=== PATIENT | female | born 1975 | race Caucasian/White ===

== ENCOUNTER 2024-06-25 15:39 | Outpatient (CLI) | payer OTHER, SELFPAY ==
[2024-06-25 16:53] LABS: Beta HCG Quantitative < 2.39 mIU/ML
[2024-07-01 11:53] LABS: FSH 116.8 mIU/mL
[2024-07-08 17:58] LABS: Estrogen 61 pg/mL
== END 2024-06-25 15:40 | disposition home or self-care (01) ==
LOC: ANHLAB 15:42
PROVIDERS: Visit Provider Nurse Practitioner Family
DX: N92.6 Irregular menstruation, unspecified (principal); N91.2 Amenorrhea, unspecified
CPT/HCPCS: 36415; 82672; 83001; 84702

== ENCOUNTER 2024-10-19 14:35 | Outpatient (CLI) | payer OTHER, SELFPAY ==
[2024-10-20 09:04] LABS: FSH 97.9 mIU/mL
--- OUTSIDE RECORDS SUMMARY | 2024-10-22 14:08 | XMS_ITS | Encounter Summary ---
Author Organization [facility] Address [address] [place] [address]. [place], [place] [address] [place] [address] Care Team Providers Care X Ray Physician Name Role Phone Sheri Fair MD Primary Care Provider [phone] Encounter Details Date Type Department Care Team (Late st Contact Info) Description 04/18/2024 MyChart Message Enc [facility] Family & Internal Medicine [address] [address] [place] [address] 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 [place] [address] documented as of this encounter Visit Diagnoses Not on filedocumented in this encounter Care Teams X Ray Physician Relationship Specialty [place] [address] [place] [address] PCP - General FAMILY PRACTICE 08/07/22 documented as of this encounter
--- OUTSIDE RECORDS SUMMARY | 2024-10-22 14:08 | XMS_ITS | Encounter Summary ---
Author Organization [facility] Address [address] [place] [address]. [place], [place] [address] [place] [address] Care Team Providers Care Operations Boardman Name Role Phone Sheri Fair MD Primary Care Provider [phone] Encounter Details Date Type Department Care Team (Late Contact Info) Description 01/25/2023 [facility] [address] [place] [address] Samy, [facility] Provider Patient Amendment Request Social History Tobacco Use Types Packs/Day Years Used Date Smoking Tobacco: Never Smokeless Tobacco: Never Alcohol Use Standard Drinks/Week Comments Yes 0 (1 standard drink = 0.6 oz pur e alcohol) socially PHQ-2 Answer Date Recorded Patient Health Questionnaire-2 Score 0 01/16/2023 Comments Unknown Sex and Gender Information Value Date Recorded Sex Assigned at Not on file 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 No / Unsure 01/16/2023 4:29 PM CDT documented as of this encounter Plan of Treatment Upcoming Encounters Date Type Department Care Team (Late st Contact Info) Description 01/20/2025 4:20 PM CDT Office Visit [facility] Family & Internal Medicine [address] [address] Sheri Fair MD [address] [place] [address]. [address] [place] [address] documented as of this encounter Visit Diagnoses Not on filedocumented in this encounter Care Teams Operations Boardman Relationship Specialty [place] [address] [place] [address] PCP - General FAMILY PRACTICE 08/07/22 documented as of this encounter
--- OUTSIDE RECORDS SUMMARY | 2024-10-22 14:08 | XMS_ITS | Encounter Summary ---
Author Organization [facility] Address [address] [place] [address]. [place], [place] [address] [place] [address] Care Team Providers Care Consulting Sme Name Role Phone Sheri Fair MD Primary Care Provider [phone] Reason for Visit * Reason Onset Date Comments Question 09/29/2024 Encounter Details Date Type Department Care Team (Late st Contact Info) Description 09/29/2024 [employer] Message Enc [facility] Family & Internal Medicine [address] [address] [place] Fair [place] [id number] [place] [address]. 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 ANIC'S ASSISTANT * Vipin iGl - 10/06/2024 9:16 AM CST Pt calling needing to have a TB test done okay for order to be put in? Would like a call back Please advise. ANIC'S ASSISTANT documented in this encounter Plan of Treatment Upcoming Encounters Date Type Department Care Team (Late st Contact Info) Description 01/20/2025 4:20 PM CDT Office Visit [facility] Family & Internal Medicine [facility] [address] [place] [address] [place] [address] [facility]. [address] [place] [address] documented as of this encounter Visit Diagnoses Not on filedocumented in this encounter Care Teams Consulting Sme Relationship Specialty [place] [address] [facility]. [address] [place] [address] PCP - General FAMILY PRACTICE 08/07/22 documented as of this encounter
--- OUTSIDE RECORDS SUMMARY | 2024-10-22 14:08 | XMS_ITS | Encounter Summary ---
Author Organization [facility] Address [address] [place] [address]. [place], [place] [address] [place] [address] Care Team Providers Care Production Lead Name Role Phone Sheri Fair MD Primary Care Provider [phone] Encounter Details Date Type Department Care Team (Late st Contact Info) Description 12/28/2023 Coworking[employer]t Message Enc [facility] Family & Internal Medicine [address] [address] Sheri Fair MD [address] [place] [address] [place] [address] Lipid panel Social History Tobacco Use Types Packs/Day Years Used Date Smoking Tobacco: Never Smokeless Tobacco: Never Alcohol Use Standard Drinks/Week Comments Yes 0 (1 standard drink = 0.6 oz pur e alcohol) socially PHQ-2 Answer Date Recorded Patient Health Questionnaire-2 Score 0 01/16/2023 Comments Unknown Sex and Gender Information Value Date Recorded Sex Assigned at Not on file 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 No order was placed. Patient scheduled 01/20/24 documented in this encounter Plan of Treatment Upcoming Encounters Date Type Department Care Team (Late st Contact Info) Description 01/20/2025 4:20 PM CDT Office Visit [facility] Family & Internal Medicine - [place] [address] [place] [phone] [place] [address] [facility] [address] [place] [address] documented as of this encounter Visit Diagnoses Not on filedocumented in this encounter Care Teams Production Lead Relationship Specialty [place] [address] [facility] [address] [place] [address] PCP - General FAMILY PRACTICE 08/07/22 documented as of this encounter
--- OUTSIDE RECORDS SUMMARY | 2024-10-22 14:08 | XMS_ITS | Encounter Summary ---
Author Organization [facility] Address [address] [place] [address]. [place], [place] [address] [place] [address] Care Team Providers Care Esl Instructional Assistant Name Role Phone Sheri Fair MD Primary Care Provider Encounter Details Date Type Department Care Team (Late Contact Info) Description 02/06/2023 Kaizen Platform Message Enc [facility] Family & Internal Medicine [address] [address] Samy [facility] Provider results Social History Tobacco Use Types Packs/Day Years Used Date Smoking Tobacco: Never Smokeless Tobacco: Never Alcohol Use Standard Drinks/Week Comments Yes 0 (1 standard drink = 0.6 oz pur e alcohol) socially PHQ-2 Answer Date Recorded Patient Health Questionnaire-2 Score 0 01/16/2023 Comments Unknown Sex and Gender Information Value Date Recorded Sex Assigned at Not on file Legal Sex Female 9:00 AM SCOUTS Gender Identity Not on file Sexual Orientation Not on file COVID-19 Exposure Response Date Recorded In the last 10 days, have yo u been in contact with someone who was confirmed or suspected to have Coronavirus/COVID-19? No / Unsure 01/16/2023 4:29 PM CDT documented as of this encounter Plan of Treatment Upcoming Encounters Date Type Department Care Team (Late Contact Info) Description 01/20/2025 4:20 PM CDT Office Visit [facility] Family & Internal Medicine [facility] [id number] [place] [address] Sheri Fair MD [address] [place] [address]. [address] [place] [address] documented as of this encounter Visit Diagnoses Not on filedocumented in this encounter Care Teams Esl Instructional Assistant Relationship Specialty [place] [address] [address] [place] [address] PCP - General FAMILY PRACTICE 08/07/22 documented as of this encounter
--- OUTSIDE RECORDS SUMMARY | 2024-10-22 14:08 | XMS_ITS | Clinical Summary ---
Author Organization [facility] Address [address] [place] [address]. [place] [address] [place] [address] Care Team Providers Care Radar Signal Processing Engineer Name Role Phone Sheri Fair MD Primary Care Provider [phone] Allergies No known active allergies Medications multi vitamin/mineral s (THERA-M ENHANCED) tablet Take 1 tablet by mouth daily. Active Glucosamine-Cho ndroitin 1795-5117 MG/30ML Liquid Take 1 capsule by mouth daily. 1500mg Active Methylsulfonylm ethane (MSM) 500 MG Cap Active ferrous sulfate EC 325 (65 Fe) MG tablet Take 1 tablet by mouth daily. Active magnesium oxide (MAG-OX) 400 (240 Mg) MG tablet Take 1 tablet (400 mg total) by mouth daily. Active vitamin D3, cholecalciferol , (VITAMIN D-3) 10 mcg tablet Take 1.5 tablets (15 mcg total) by mouth daily. Active Zinc Sulfate (ZINC 15 OR) Take 15 mg by mouth. Active Methylsulfonylm ethane (MSM) 1000 MG Tab Active vitamin B-12 (CYANOCOBALAMIN ) (CYANOCOBALAMIN ) 1000 mcg tablet Take 1 tablet (1,000 mcg total) by mouth daily. Active Calcium Carbonate Antacid 1000 MG Chew Tab Chew 1 tablet by mouth daily. Active Seth-3 Fatty Acids (FISH OIL) 1200 MG Cap Active azithromycin (ZITHROMAX) 250 MG tabletIndicatio ns:Bronchitis Take 2 tablets by mouth on day one then 1 daily for four days. 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 Encounters Date Type Department Care Team Description 10/06/2024 3:00 PM TV NEWS DIRECTOR Allied Health/Nurse Visit [facility] Family & Internal Medicine [address] [address] Sheri Fair MD Allied Health Visit (TB test ) 10/06/2024 Scan [employer] [facility] SR[facility] Scanned, Doc [facility] Lab (SCAN) 10/06/2024 Travel 09/29/2024 [employer] Message Enc [facility] Family & Internal [address] [address] Sheri Fair MD Physical 09/15/2024 3:20 PM TV NEWS DIRECTOR Office Visit [facility] Family & Internal [address] [address] Jeri Leigh PA URI (S/s x 3 weeks) 09/15/2024 Travel from Last 3 Months Immunizations Name Administration Dates Next Due Tdap (Adacel) 09/03/2022 Family History * Patient is adopted Medical History Relation Comments Cancer Father Breast Cancer Neg Hx Relation Status Comments Father Social History Tobacco Use Types Packs/Day Years Used Date Smoking Tobacco: Never Smokeless Tobacco: Never Tobacco Cessation:Counseling Given: No Alcohol Use Standard Drinks/Week Comments Yes 0 (1 standard drink = 0.6 oz pur e alcohol) socially PHQ-2 Answer Date Recorded Patient Health Questionnaire-2 Score 0 01/20/2024 Comments No Sex and Gender Information Value Date Recorded Sex Assigned at Not on file Legal Sex Female 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 Gender Identity Not on file Sexual Orientation Not on file Last Filed Vital Signs Vital Sign Reading Time Taken Comments Blood Pressure 127/77 09/15/2024 2:57 PM TV NEWS DIRECTOR Pulse 62 09/15/2024 2:57 PM TV NEWS DIRECTOR Temperature 36.3 ??C (97.3 ??F) 09/15/2024 2:57 PM CS T Respiratory Rate 16 09/15/2024 2:57 PM TV NEWS DIRECTOR Oxygen Saturation 97% 09/15/2024 2:57 PM TV NEWS DIRECTOR Inhaled Oxygen Concentration - - Weight 65.6 kg (144 lb 9.6 oz) 09/15/2024 2:57 P M TV NEWS DIRECTOR Height 172.7 cm (5' 8 ) 09/15/2024 2:57 PM TV NEWS DIRECTOR Body Mass Index 21.99 09/15/2024 2:57 PM TV NEWS DIRECTOR Plan of Treatment Upcoming Encounters Date Type Department Care Team (Late st Contact Info) Description 01/20/2025 4:20 PM CDT Office Visit [facility] [address] [place] [address] [place] [address] [facility]. [address] [place] [address] Health Maintenance Due Date Last Done Comments Hepatitis B Vaccines (1 of 3 - 19+ 3-dose series) 1996 Annual Physical 01/17/2024 01/16/2023 COVID-19 Vaccine (2 - 2023-2 5 season) 2024 02/13/2021 Influenza Adult (#1) 2024 PHQ-2 (Physician [place]) 01/19/2025 01/20/2024 Cervical Cancer Screening Pa p Smear (Age 30 to 64) Every 3 Years 01/16/2026 01/16/2023 Mammogram Screening 01/28/2026 01/29/2024, 11/26/2022 Colorectal Cancer Screening FIT-DNA (3 Years) 01/30/2026 01/30/2023, 01/30/2023 Cervical Cancer Screening Pa p with HPV Testing (Age 30 to 64) Every 5 Years 01/17/2028 01/16/2023 Cervical Cancer Screening wi th HPV 01/17/2028 DTaP, Tdap and Td Vaccines ( 2 - Td or Tdap) 09/03/2032 09/03/2022 Hepatitis C Completed 01/02/2023 Meningococcal B Vaccine Aged Out No l onger eligible based on patient's age to complete this topic Meningococcal Vaccine Aged Out No devaughn elisabeth eligible based on patient's age to complete this topic Pneumococcal Vaccine: Pediatrics (0 to 5 Years) and At-Risk Patients (6 to 64 Years) Aged Out No longer eligible b ased on patient's age to complete this topic RSV Immunizations Under 20 Months Aged Out No longer eligible b ased on patient's age to complete this topic Procedures Procedure Name Priority Date/Time Associated Diagnosis Comments TB INTRADERMAL TEST (BACK OFFICE) Routine 10/06/2024 3:02 PM TV NEWS DIRECTOR Screening-pulmonary TB OUTSIDE LAB (SCAN ORDER) 10/06/2024 MG SCREENING W TRENTON SYBIL DIGI Routine 01/29/2024 3:00 PM CDT Breast cancer screening COLOGUARD (EXACT SCIENCE) Routine 01/30/2023 7:05 AM CDT Colon cancer screening HUMAN PAPILLOMAVIRUS, HIGH-RISK TYPES Routine 01/16/2023 12:00 PM CDT CYTOPATH CERV/VAG THIN LAYER Routine 01/16/2023 8:12 AM CDT Cervical cancer screening HEPATITIS C ANTIBODY Routine 01/02/2023 7:35 AM CDT Encounter for hepatitis C screening test for low risk patient from Last 3 Months or Most Recently Relevant to Health Maintenance Results * TB INTRADERMAL TEST (BACK OFFICE) (10/06/2024 3:02 PM TV NEWS DIRECTOR) MM INDURATION 0mm NOT REQUIRED 10/06/2024 3:02 PM TV NEWS DIRECTOR Sheri Fair MD MICROBIOLOGY - GENERAL ORDERAB LES Final Result * OUTSIDE LAB (SCAN ORDER) (10/06/2024) 10/06/2024 [facility] Scanned SCANNING Final Resu lt * MG SCREENING W TRENTON SYBIL DIGI (01/29/2024 3:00 PM CDT) Anatomical Region Laterality Modality Breast Bilateral Mammography 01/29/2024 5:13 PM CDT Impressions 01/29/2024 5:17 PM CDT ===== IMPRESSION: ===== 1. ??Stable mammographic appearance with no new findings to suggest malignancy in either breast. Assessment: ACR BI-RADS 2 - BENIGN FINDING(S) Recommendation: 1:Routine Screening Bilateral Comments: Ordered By: SHERI FAIR Interpreted By: Elida Pederson, 01/29/2024 5:13 PM Narrative 01/29/2024 5:17 PM CDT EXAMINATION: Digital bilateral screening mammogram with 3-D tomosynthesis EXAM DATE/TIME: 01/29/2024 2:48 PM REASON FOR EXAM: ??Screening mammogram after November ? COMPARISON: 05/14/2022. 11/26/2022. Technique: Digital screening mammography of both breasts was performed in addition to 3-D Tomosynthesis technique. This study was read with the assistance of a computer-aided detection system. Tissue density: The breast tissue is heterogeneously dense, which may obscure small masses. Findings: There is no new focal asymmetry, dominant mass lesion, area of skin thickening, or cluster of suspicious appearing calcifications in either breast to suggest malignancy. Sheri Fair MD MAMMO Final Result * COLOGUARD (Zjdg.cn SCIENCE) (01/30/2023 7:05 AM CDT) COLOGUARD RESULT Negative Negative [place] [place] (CLIA #:[id number]) Comment: NEGATIVE TEST RESULT. A negative Cologuard result indicates a low likelihood that a colorectal cancer (CRC) or advanced adenoma (adenomatous polyps with more advanced pre-malignant features) ??is present. The chance that a person with a negative Cologuard test has a colorectal cancer is less than 1 in 1500 (negative predictive value >99.9%) or has an ??advanced adenoma is less than ??5.3% (negative predictive value 94.7%). These data are based on a prospective cross-sectional study of 10,000 individuals at average risk for colorectal cancer who were screened with both Cologuard and colonoscopy. (Giselle Abernathy al, N Engl J Med 2014;370(14):1286- 1297) The normal value (reference range) for this assay is negative. COLOGUARD RE-SCREENING RECOMMENDATION: Periodic colorectal cancer screening is an important part of preventive healthcare for asymptomatic individuals at average risk for colorectal cancer. ??Following a negative Cologuard result, the [place] [employer] Cancer Society and U.S. Multi-Society Task Force screening guidelines recommend a Cologuard re-screening interval of 3 years. References: [place] [employer] Society Guideline for Colorectal Cancer Screening: https://www.cancer.org/cancer/mzloe-xsjtzx-qnppqi/ztrevixqq-lfukjkqpa-tgcigse/ac s-rec ommendations.html.; Frederic DK, Shaggy JENKINS, Tam ClayK, Colorectal Cancer Screening: Recommendations for Physicians and Patients from the U.S. Multi-Society Task Force on Colorectal Cancer Screening , Am J Gastroenterology 2017; 112:2771-5820. TEST DESCRIPTION: Composite algorithmic analysis of stool DNA-biomarkers with hemoglobin immunoassay. ?? Quantitative values of individual biomarkers are not reportable and are not associated with individual biomarker result reference ranges. Cologuard is intended for colorectal cancer screening of adults of either sex, 45 years or older, who are at average-risk for colorectal cancer (CRC). Cologuard has been approved for use by the U.S. FDA. The performance of Cologuard was established in a cross sectional study of average-risk adults aged 50-84. Cologuard performance in patients ages 45 to 49 years was estimated by sub-group analysis of near-age groups. Colonoscopies performed for a positive result may find as the most clinically significant lesion: colorectal cancer [4.0%], advanced adenoma (including sessile serrated polyps greater than or equal to 1cm diameter) [20%] or non- advanced adenoma [31%]; or no colorectal neoplasia [45%]. These estimates are derived from a prospective cross-sectional screening study of 10,000 individuals at average risk for colorectal cancer who were screened with both Cologuard and colonoscopy. (Giselle Abernathy al, N Engl J Med 2014;370(14):6094-3694.) Cologuard may produce a false negative or false positive result (no colorectal cancer or precancerous polyp present at colonoscopy follow up). A negative Cologuard test result does not guarantee the absence of CRC or advanced adenoma (pre-cancer). The current Cologuard screening interval is every 3 years. ([place] [employer] Cancer Society and U.S. Multi-Society Task Force). Cologuard performance data in a 10,000 patient pivotal study using colonoscopy as the reference method can be accessed at the following location: www.Fineline.thinkingphones/results. Additional description of the Cologuard test process, warnings and precautions can be found at www.colWeVideo.Itrd.com. STOOL STOOL SPECIMEN / Unknown 01/30/2023 7:05 AM CDT 01/31/2023 2:55 PM CDT Sheri Fair MD BODY FLUIDS AND STOOLS ORDERAB LES Final Result Performing Organization Address [facility] Co de Phone Number [employer] ([facility] [address] [facility]) [address] [place] [address], [facility] (CLIA #:[id number]) [address] [place] [address] * HUMAN PAPILLOMAVIRUS, HIGH-RISK TYPES (01/16/2023 12:00 PM CDT) SPEC DESCRIPTION CERVICAL/END OCERVICAL 01/18/2023 8:36 AM CDT [facility] HPV DNA HIGH RISK NEGATIVE NEGATIVE 01/18/2023 4:34 PM CDT [facility] Comment:SEE CYTOLOGY REPORT 01/16/2023 12:0 0 PM CDT Sheri Fair MD PATHOLOGY/CYTOLOGY ORDERABLES Final Result Performing Organization Address City/[facility]/ZIP Co de Phone Number [facility] [address] [place] [address], * CYTOPATH CERV/VAG THIN LAYER [[id number]] (01/16/2023 8:12 AM CDT) THIN PREP PAP ? [facility] ?[address] ?[place] [address] ? Department of Pathology ? Pathology Report ? CERVICAL/VAGINAL PAP SMEAR REPORT Name: JACKIE COLEMAN ? Age: 704/06/1975 (Age: 47) ? Location: [facility] Sex: F ?Collected Date: 01/16/2023 Hospital #: [id number] ?Date Received: 01/18/2023 Date Reported: 01/22/2023 Provider: SHERI FAIR MD INTERPRETATION CERVICAL/ENDOCERVI LUIS FERNANDO: ? SATISFACTORY FOR EVALUATION. ENDOCERVICAL/TRANS FORMATION ZONE COMPONENT PRESENT. ? NEGATIVE FOR INTRAEPITHELIAL LESION OR MALIGNANCY. NEGATIVE FOR HIGH RISK HPV. The FDA approved Aptima HPV assay is an in vitro nucleic acid amplification test for the qualitative detection of E6/E7 viral messenger RNA (mRNA) from 14 high-risk types of human papillomavirus (HPV) in cervical specimens. ??The high-risk HPV types detected by the assay include: 16,18,31,33,35,39, 45,51,52,56,58,59, 66, and 68. Electronically Signed Out By SONNY Miller (ASCP) CLINICAL HISTORY Z12.4 SCREENING PAP TEST ThinPrep Pap Test with HR HPV testing in patient > 30 years requested. Date of Last Menstrual Period: ? UNKNOWN Menstrual Status: Post-Menopausal SPECIMEN SUBMITTED CERVICAL/ENDOCERVI LUIS FERNANDO ?Specimen Received:1 Thin Prep Vial, Image Assisted Pap (SMD) ? Please note: The Pap smear is not a diagnostic test. ??It is a screening test. ??Negative results on combined screening (Pap test and HPV-DNA) have a high negative predictive value (99.1-100 percent) for cervical cancer. ??The pap test is not effective in detecting cervical adenocarcinoma. [facility] 01/16/2023 8:12 AM CDT 01/18/2023 8:12 AM CDT Comment:CERVICAL/ENDOCERVICA L Sheri Fair MD PATHOLOGY/CYTOLOGY ORDERABLES Final Result [facility] [address] [place] [address], * HEPATITIS C AB ([facility] ONLY) (01/02/2023 7:35 AM CDT) HEPATITIS C AB NON-REACTI VE NON-REACTI VE 01/02/2023 8:25 PM CDT [facility] 01/02/2023 7:35 AM CDT Sheri Fair MD LABORATORY Final Result [facility] [address] [place] [address], [place] [phone] from Last 3 Months or Most Recently Relevant to Health Maintenance Insurance [facility] [place] [id number] [employer] Care Teams Radar Signal Processing Engineer Relationship Specialty [place] [address] [address] [place] [address] PCP - General FAMILY PRACTICE 08/07/22
== END 2024-10-19 14:36 | disposition home or self-care (01) ==
LOC: ANHLAB 14:36
PROVIDERS: Visit Provider Nurse Practitioner Obstetrics & Gynecology
DX: N92.6 Irregular menstruation, unspecified (principal)
CPT/HCPCS: 36415; 83001

== ENCOUNTER 2024-10-30 15:58 | Outpatient (CLI) | payer OTHER, SELFPAY ==
--- OUTSIDE RECORDS SUMMARY | 2024-10-30 16:00 | XMS_ITS | Encounter Summary ---
Author Organization [facility] Address [address] [place] [address]. [place], [place] [address] [place] [address] Care Team Providers Care Waste Picker Name Role Phone Sheri Fair MD Primary Care Provider [phone] Reason for Visit * Reason Onset Date Comments Question 09/29/2024 Encounter Details Date Type Department Care Team (Late st Contact Info) Description 09/29/2024 [employer] Message Enc [facility] Family & Internal Medicine [address] [address] [place] Fair [place] [id number] [place] [address]. [address] [place] [address] Physical Social History Tobacco Use [...] on file Legal Sex Female 9:00 AM CPAS Gender Identity Not on file Sexual Orientation Not on file documented as of this encounter Progress Notes * Nadine Rubalcava RN - 10/09/2024 8:41 AM CST Paperwork signed & scanned into chart. * Vipin Gil - 10/06/2024 9:16 AM CST Pt calling needing to have a TB test done okay for order to be put in? Would like a call back Please advise. documented in this encounter Plan of Treatment Upcoming Encounters Date Type Department Care Team (Late st Contact Info) Description 01/20/2025 4:20 PM CDT Office Visit [facility] Family & Internal Medicine [facility] [address] [place] [address] [place] [address] [facility] [place]. [address] [place] [address] documented as of this encounter Visit Diagnoses Not on filedocumented in this encounter Care Teams Waste Picker Relationship Specialty [place] [address] [facility] [place]. [address] [place] [address] PCP - General FAMILY PRACTICE 08/07/22 documented as of this encounter
--- OUTSIDE RECORDS SUMMARY | 2024-10-30 16:00 | XMS_ITS | Encounter Summary ---
Author Organization [facility] Address [address] [place] [address]. 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 [address] [place] [address] documented as of this encounter Visit Diagnoses Not on filedocumented in this encounter Care Teams It Manager Relationship Specialty [place] [address] [address] [place] [address] PCP - General FAMILY PRACTICE 08/07/22 documented as of this encounter
--- OUTSIDE RECORDS SUMMARY | 2024-10-30 16:00 | XMS_ITS | Encounter Summary ---
Author Organization [facility] Address [address] [place] [address]. 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 [address] [place] [address] documented as of this encounter Visit Diagnoses Not on filedocumented in this encounter Care Teams Technical Documentation Specialist Relationship Specialty [place] [address] [address] [place] [address] PCP - General FAMILY PRACTICE 08/07/22 documented as of this encounter
--- OUTSIDE RECORDS SUMMARY | 2024-10-30 16:00 | XMS_ITS | Clinical Summary ---
Author Organization [facility] Address [address] [place] [address]. [place] [address] [place] [address] Care Team Providers Care Certified Dental Assistant Name Role Phone Sheri Fair MD Primary Care Provider [phone] Allergies No known active allergies Medications multi vitamin/mineral s (THERA-M ENHANCED) tablet Take 1 tablet by mouth daily. Active Glucosamine-Cho ndroitin 7970-2354 MG/30ML Liquid Take 1 capsule by mouth [...] Chew 1 tablet by mouth daily. Active Tow-3 Fatty Acids (FISH OIL) 1200 MG Cap Active azithromycin (ZITHROMAX) 250 MG tabletIndicatio ns:Bronchitis Take 2 tablets by mouth on day one then 1 daily for four days. 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 Encounters Date Type Department Care Team Description 10/06/2024 3:00 PM FINISHING TECHNICIAN Allied Health/Nurse Visit [facility] Family & Internal Medicine [address] [address] Sheri Fair MD Allied Health Visit (TB test ) 10/06/2024 Scan Errplane HEALTH INFO SRVCS Scanned, [facility] Lab (SCAN) 10/06/2024 Travel 09/29/2024 Collplanthart Message Enc [facility] Family & Internal [address] [address] Sheri Fair MD Physical 09/15/2024 3:20 PM FINISHING TECHNICIAN Office Visit [facility] Family & Internal [address] [address] Jeri Leigh PA URI (S/s [...] on file 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 Gender Identity Not on file Sexual Orientation Not on file Last Filed Vital Signs Vital Sign Reading Time Taken Comments Blood Pressure 127/77 09/15/2024 2:57 PM FINISHING TECHNICIAN Pulse 62 09/15/2024 2:57 PM FINISHING TECHNICIAN Temperature 36.3 ??C (97.3 ??F) 09/15/2024 2:57 PM CS T Respiratory Rate 16 09/15/2024 2:57 PM FINISHING TECHNICIAN Oxygen Saturation 97% 09/15/2024 2:57 PM FINISHING TECHNICIAN Inhaled Oxygen Concentration - - Weight 65.6 kg (144 lb 9.6 oz) 09/15/2024 2:57 P M FINISHING TECHNICIAN Height 172.7 cm (5' 8 ) 09/15/2024 2:57 PM FINISHING TECHNICIAN Body Mass Index 21.99 09/15/2024 2:57 PM FINISHING TECHNICIAN Plan of Treatment Upcoming Encounters Date Type Department Care Team (Late st Contact Info) Description 01/20/2025 4:20 PM CDT Office Visit [facility] Family & Internal Medicine [facility] [address] [place] [address] [place] [address] [facility] [place] [address] Health Maintenance Due Date Last Done Comments Hepatitis B Vaccines (1 of 3 - 19+ 3-dose series) 1996 Annual Physical 01/17/2024 01/16/2023 COVID-19 Vaccine (2 - 2023-2 5 season) 2024 02/13/2021 Influenza Adult (#1) 2024 PHQ-2 (Physician [place]) 09/30/2024 01/20/2024 PHQ-2 (Physician [place]) 01/19/2025 01/20/2024 Cervical Cancer Screening Pa p [...] TEST (BACK OFFICE) Routine 10/06/2024 3:02 PM FINISHING TECHNICIAN Screening-pulmonary TB OUTSIDE LAB (SCAN ORDER) 10/06/2024 [...] INTRADERMAL TEST (BACK OFFICE) (10/06/2024 3:02 PM FINISHING TECHNICIAN) MM INDURATION 0mm NOT REQUIRED 10/06/2024 3:02 PM FINISHING TECHNICIAN Sheri Fair MD MICROBIOLOGY - GENERAL ORDERAB [...] Fair MD MAMMO Final Result * COLOGUARD (EXACT SCIENCE) (01/30/2023 7:05 AM CDT) COLOGUARD RESULT Negative Negative [employer] (CLIA #:[id number]) Comment: NEGATIVE TEST RESULT. A negative Cologuard [...] cancer. ??Following a negative Cologuard result, the [place] [employer] Society and U.S. Multi-Society Task Force screening guidelines recommend a Cologuard re-screening interval of 3 years. References: [place] [employer] Guideline for Colorectal Cancer Screening: https://www.cancer.org/cancer/vyqhr-bnbnmp-hvpdej/wtxjzbvwq-qpmrvepjo-aejovqv/ac s-rec ommendations.html.; Frederic DK, Shaggy CR, Tam ClayK, Colorectal Cancer Screening: Recommendations for Physicians and Patients from the U.S. Multi-Society Task Force on Colorectal Cancer Screening , Am J Gastroenterology 2017; 112:4245-3038. TEST DESCRIPTION: Composite algorithmic analysis of stool [...] screened with both Cologuard and colonoscopy. (Giselle Kyle, N Engl J Med 2014;370(14):6551-3588.) Cologuard may produce a false negative or false positive result (no colorectal cancer or precancerous polyp present at colonoscopy follow up). A negative Cologuard test result does not guarantee the absence of CRC or advanced adenoma (pre-cancer). The current Cologuard screening interval is every 3 years. ([place] [employer] Society and U.S. Multi-Society Task Force). Cologuard performance data in a 10,000 patient pivotal study using colonoscopy as the reference method can be accessed at the following location: www.[employer].com/results. Additional description of the Cologuard test process, warnings and precautions can be found at www.cologuard.com. STOOL STOOL SPECIMEN / Unknown 01/30/2023 7:05 AM CDT 01/31/2023 2:55 PM CDT us Sheri Fair MD BODY FLUIDS AND STOOLS ORDERAB LES Final Result Performing Organization Address [facility] Co de Phone Number [employer] ([address] LAB) [address] [place] [address], [employer] (CLIA #:[id number]) [address] [place] [address] * HUMAN PAPILLOMAVIRUS, HIGH-RISK TYPES (01/16/2023 12:00 PM CDT) SPEC DESCRIPTION CERVICAL/END OCERVICAL 01/18/2023 8:36 AM CDT [facility] HPV DNA HIGH RISK NEGATIVE NEGATIVE 01/18/2023 4:34 PM CDT [facility] Comment:SEE CYTOLOGY REPORT 01/16/2023 12:0 0 PM CDT us Sheri Fair MD PATHOLOGY/CYTOLOGY ORDERABLES Final Result Performing Organization Address [facility] Co de Phone Number [facility] [address] [place] [address], * CYTOPATH CERV/VAG THIN LAYER [[id number]] (01/16/2023 8:12 AM CDT) THIN PREP PAP ? [facility] ?[address] ?[place] [address] ? Department of Pathology ? Pathology Report ? CERVICAL/VAGINAL PAP SMEAR REPORT Name: JACKIE COLEMAN ? Age: 704/06/1975 (Age: 47) ? Location: [facility] Sex: F ?Collected Date: 01/16/2023 Hospital #: [id number] ?Date Received: 01/18/2023 Date Reported: 01/22/2023 Provider: [...] is not effective in detecting cervical adenocarcinoma. [facility] 01/16/2023 8:12 AM CDT 01/18/2023 8:12 AM CDT Comment:CERVICAL/ENDOCERVICA L Sheri Fair MD PATHOLOGY/CYTOLOGY ORDERABLES Final Result [facility] [address] [place] [address], * HEPATITIS C AB ([facility] ONLY) (01/02/2023 7:35 AM CDT) HEPATITIS C AB NON-REACTI VE NON-REACTI VE 01/02/2023 8:25 PM CDT [facility] 01/02/2023 7:35 AM CDT Sheri Fair MD LABORATORY Final Result [facility] [address] [place] [address], [place] [phone] from Last 3 Months or Most Recently Relevant to Health Maintenance Insurance [facility] [place] [id number] [employer] Care Teams Certified Dental Assistant Relationship Specialty [place] [address] [place] [address] PCP - General FAMILY PRACTICE 08/07/22
--- OUTSIDE RECORDS SUMMARY | 2024-10-30 16:00 | XMS_ITS | Encounter Summary ---
Author Organization [facility] Address [address] [place] [address]. 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 No order was placed. Patient scheduled 01/20/24 documented in this encounter Plan of Treatment Upcoming Encounters Date Type Department Care Team (Late st Contact Info) Description 01/20/2025 4:20 PM CDT Office Visit [facility] Medical Group Family & Internal Medicine - [place] [address] [place] [phone] [place] [address] [facility] [place] [address] documented as of this encounter Visit Diagnoses Not on filedocumented in this encounter Care Teams Bread And Pastry Baker Relationship Specialty [place] [address] [facility] [address] [place] [address] PCP - General FAMILY PRACTICE 08/07/22 documented as of this encounter
--- OUTSIDE RECORDS SUMMARY | 2024-10-30 16:00 | XMS_ITS | Encounter Summary ---
Author Organization [facility] Address [address] [place] [address]. [place], [place] [address] [place] [address] Care Team Providers Care Negotiations Director Name Role Phone Sheri Fair MD Primary Care Provider [phone] Encounter Details Date Type Department Care Team (Late st Contact Info) Description 04/18/2024 MyChart Message Enc [facility] Family & Internal Medicine [address] [address] [place] [address] 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 [place] [address] documented as of this encounter Visit Diagnoses Not on filedocumented in this encounter Care Teams Negotiations Director Relationship Specialty [place] [address] [place] [address] PCP - General FAMILY PRACTICE 08/07/22 documented as of this encounter
== END 2024-10-30 15:59 | disposition home or self-care (01) ==
PROVIDERS: Visit Provider Nurse Practitioner Obstetrics & Gynecology
DX: Z78.0 Asymptomatic menopausal state (principal)
CPT/HCPCS: 36415; 82670; 84443

== ENCOUNTER 2024-12-28 13:15 | Outpatient (CLI) | payer OTHER, SELFPAY ==
--- NOTE | ~2024-12-28 | US_ITS ---
EXAMINATION: US pelvic complete w TV INDICATION: Postmenopausal bleeding Comparison:Postmenopausal bleeding TECHNIQUE: Multiple transabdominal and endovaginal sonographic images of the pelvis performed. FINDINGS: The uterus measures 7 x 4.5 x 4.5 cm. Uterus is retroverted. There is a small uterine fibro id measuring 8 mm. The endometrial complex measures 5 mm. The right ovary measures 3.2 x 1.6 x 2.3 cm and the left ovary measures 2.7 x 2.1 x 0.9 cm. There is a 1.6 cm right ovarian cyst. There are small follicles in each ovary. Normal doppler signal in both o varies. There is no free fluid in the pelvis. There are no abnormal masses seen on either side. IMPRESSION: 1. Thickened endomtrial complex. The differential diagnosis includes endometrial hyperplasia, polyp a nd carcinoma. Biopsy is recommended. Reviewed, dictated and finalized at location A. IMPRESSION: 1. Thickened endomtrial complex. The differential diagnosis includes endometria l hyperplasia, polyp and carcinoma. Biopsy is recommended.
== END 2024-12-28 13:16 | disposition home or self-care (01) ==
LOC: MICIMG 13:16
PROVIDERS: PCP Nurse Practitioner Obstetrics & Gynecology; Visit Provider Nurse Practitioner Obstetrics & Gynecology
DX: N95.0 Postmenopausal bleeding (principal); R93.89 Abnormal findings on diagnostic imaging of other specified body structures
CPT/HCPCS: 76830; 76856

== ENCOUNTER 2025-02-03 00:53 | Day surgery (SDC) | payer OTHER, SELFPAY ==
[2025-01-19 17:00] VITALS: BMI 22.4
--- NOTE | 2025-01-19 17:05 | SUR.PREOP ---
Report to the Outpatient Waiting Room, entrance under the green pavilion located off [facility], at time _0930_ on date _02/03/2025_. Planned Procedure Time: _1130_.? Time changes happen often and if your time is changed the preop area will call you the afternoon before. - You and your visitor will be asked to self-screen and do not enter if you have any COVID symptoms. Please call surgeon if you need to reschedule. - A mask is optional within the hospital at this time. Patients may have clear liquids (water, carbonated beverages, clear teas, apple juice) until 3 hours (0830) prior to surgery with a maximum of 20 ounces. - No food from midnight until time of surgery and no smoking, or chewing tobacco (or any form of nicotine). No chewing gum, candy or mints. Take only the following medications with a SIP of water on the morning of surgery: _NA_ DO NOT STOP ANY OF YOUR OTHER PRESCRIPTION MEDICATIONS PRIOR TO SURGERY EXCEPT THE FOLLOWING Hold all vitamins and supplements for 3 days per anesthesiologist. Medications to discontinue per physician _NA_ Date to take last dose_NA_ Please no make-up, nail kinyarwanda, hairspray, perfume, deodorant, or body powder the day of surgery.? No jewelry (including any body piercings) or valuables the day of surgery, leave them at home.? Please take a shower or bath the night before, or the morning of, surgery with an antibacterial soap.? Wear comfortable, loose fitting clothing.? - Jewelry must be removed prior to entering the operating room.? Rings and piercings that are not removed may be cut off. - The hospital will not accept responsibility for valuables.? - Please leave all valuables, including medications, at home the day of surgery. If you are going home after surgery, a licensed cdl team truck driver must drive you home.? - NO public transportation without another adult if you receive anesthesia. - We recommend that an adult stay with you for 24 hours following discharge. - We also recommend that you do not drive, make important decision, drink alcoholic beverages, or take any drugs that were not prescribed by your health care provider for at least 24 hours after your discharge time. Follow any additional instructions given to you from your surgeon. Telephone instructions given to _Shannon_and asked if any additional questions and then verbalized understanding. Patient advised to call surgeon office or pre surgery nurse liaison [phone] if any additional questions.
[2025-02-03] VITALS (10 sets, daily range): BP systolic 61–125; BP diastolic 30–76; PULSE 41–74; RESP 16–18; TEMP 36.1; O2SAT 100
--- OUTSIDE RECORDS SUMMARY | 2025-02-03 00:56 | XMS_ITS | Encounter Summary ---
Author Organization [facility] Address [address] [place] [address] Care Team Providers Care Tumbling Instructor Name Role Phone Sheri Fair MD Primary Care Provider [phone] Encounter Details Date Type Department Care Team (Late st Contact Info) Description 04/18/2024 Intigu[employer]art Message Enc [facility] Medical Group Family & Internal Medicine [address] [address] [place] [address] 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 [place] [id number] PCP - General FAMILY PRACTICE 08/07/22 documented as of this encounter
--- OUTSIDE RECORDS SUMMARY | 2025-02-03 00:56 | XMS_ITS | Clinical Summary ---
Author Organization [facility] Address [facility] [place] [address] Care Team Providers Care Fringe Weaver Name Role Phone Sheri Fair MD Primary Care Provider [phone] Allergies No known active allergies Medications multi vitamin/mineral s (THERA-M ENHANCED) tablet Take 1 tablet by mouth daily. Active Glucosamine-Cho ndroitin 2479-8823 MG/30ML Liquid Take 1 capsule by mouth [...] Chew 1 tablet by mouth daily. Active Colbert-3 Fatty Acids (FISH OIL) 1200 MG Cap Active azithromycin (ZITHROMAX) 250 MG tabletIndicatio ns:Bronchitis Take 2 tablets by mouth on day one then 1 daily for four days. 6 tablet 4 Active Additional Information Patient not taking.Reported on 01/13/2025 Ca Phosphate-Jenny calciferol (ALIVE CALCIUM PLUS VITAMIN D3) 260-25 MG-MCG Chew Tab Acti ve Active Problems Problem Noted Date Diagnosed Date Macrocytosis 01/20/2023 Encounters Date Type Department Care Team Description 01/13/2025 10:28 AM CDT - 01/13/2025 11:59 PM CDT Hospital Encounter [facility] [address] [place] [address] Jeri Leigh, PA Discharge Disposition: Home or Self Care (Routine Discharge) 01/13/2025 10:27 AM CDT Hospital Encounter [facility] [address] [place] [address] Jeri Leigh, PA Discharge Disposition: Home or Self Care (Routine Discharge) 01/13/2025 9:20 AM CDT Office Visit [facility] [address] [phone] Jeri Leigh, PA Pain (To upper left side- x2 weeks-area to ribs and whole left side) 01/13/2025 Results Follow-Up 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 Gender Identity Not on file Sexual Orientation Not on file Last Filed Vital Signs Vital Sign Reading Time Taken Comments Blood Pressure 139/85 01/13/2025 9:18 AM CDT Pulse 69 01/13/2025 9:18 AM CDT Temperature 37 C (98.6 F) 01/13/2025 9:18 AM CDT Respiratory Rate 20 01/13/2025 9:18 AM CDT Oxygen Saturation 100% 01/13/2025 9:18 AM CDT Inhaled Oxygen Concentration - - Weight 67.1 kg (148 lb) 01/13/2025 9:18 AM CDT Height 172.7 cm (5' 8) 01/13/2025 9:18 AM CDT Body Mass Index 22.5 01/13/2025 9:18 AM CDT Plan of Treatment Health Maintenance Due Date Last Done Comments Hepatitis B Vaccines (1 of 3 - 19+ 3-dose series) 1996 Annual Physical 01/17/2024 01/16/2023 COVID-19 Vaccine (2 - 2023-2 5 season) 2024 02/13/2021 Cervical Cancer Screening Pa p Smear (Age [...] Tdap) 09/03/2032 09/03/2022 Hepatitis C Completed 01/02/2023 PHQ-2 (Physician [place]) Completed 01/13/2025 Meningococcal B Vaccine Aged Out No l onger eligible based on patient's age to complete this topic Meningococcal Vaccine Aged Out No devaughn elisabeth eligible based on patient's age to complete this topic Pneumococcal Vaccine: Pediatrics (0 to 5 Years) and At-Risk Patients (6 to 49 Years) Aged Out No longer eligible b ased on patient's age to complete this topic RSV Immunizations Under 20 Months Aged Out No longer eligible b ased on patient's age to complete this topic Procedures Procedure Name Priority Date/Time Associated Diagnosis Comments CT ABD+PEL W CON STAT 01/13/2025 11:5 3 AM CDT Left flank pain LLQ pain XR CHEST PA+LAT STAT 01/13/2025 10:51 AM CDT LUQ pain LIPASE Routine 01/13/2025 10:31 AM CDT LLQ pain COMPREHENSIVE METABOLIC PANEL Routine 01/13/2025 10:31 AM CDT LLQ pain CBC W/DIFF AUTOMATED Routine 01/13/2025 10:31 AM CDT LLQ pain URINALYSIS AUTO DIP Routine 01/13/2025 Left flank pain MG SCREENING W TRENTON SYBIL DIGI Routine [...] Recently Relevant to Health Maintenance Results * CT ABD+PEL W CON (01/13/2025 11:53 AM CDT) Anatomical Region Laterality Modality Abdomen Computed Tomogra phy 01/13/2025 12:0 5 PM CDT Impressions 01/13/2025 12:11 PM CDT IMPRESSION: No acute inflammatory changes are present within the abdomen or pelvis. No significant free fluid. There are a few small bowel loops on the left that has slightly thickened wall which can be seen with bowel enteropathies as well as enteritis. Clinical correlation recommended. 2.7 cm right ovarian follicle/cyst is present. This can be seen normally in a patient of menstrual age. Ordered By: JERI LEIGH Interpreted By: Sy Maki MD, 01/13/2025 12:05 PM Narrative 01/13/2025 12:11 PM CDT [facility] [address] [place] [address] Procedure(s): CT ABD+PEL W CON Date of service: 01/13/2025 10:47 AM Provided clinical information: 49 years, Female, left sided abdominal pain Procedure and materials: Helical imaging of the abdomen and pelvis are obtained from superior to the diaphragm to inferior to the initial tuberosities. Examination performed after intravenous contrast. 75 mL Isovue-370. A dose lowering technique was used for this procedure, which may include, but is not limited to, dose reduction technique, automated exposure control, iterative reconstruction, ALARA (As Low As Reasonably Achievable), or Image Gently techniques. Comparison studies: None. Findings: CT abdomen and pelvis: Lung Bases: No pleural effusions or consolidations. Adrenals:Normal. Spleen:No splenomegaly. Gallbladder and Biliary system:No CT evidence of cholelithiasis. No biliary ductal dilatation. Pancreas:Unremarkable. Liver:Unremarkable. Kidneys:Unremarkable. Bowel:No pericolonic inflammatory changes. Visualized appendix is unremarkable. No small bowel dilatation. There few scattered small bowel loops on the left that have slightly thickened morin. This may relate to a bowel enteropathy or enteritis. Clinical correlation. Aorta and Retroperitoneum:No enlarged lymph nodes. Aorta is not aneurysmal. Pelvic Organs:Urinary bladder is unremarkable. Uterus is relatively unremarkable. 2.7 cm right ovarian follicle/cyst. This can be seen normally in a patient of menstrual age. What appears to be left ovary is not enlarged. Bone/Musculoskeletal: No aggressive osseous lesions. Free fluid: None Procedure Note Sy Maki MD - 01/13/2025 [facility] [address] [place] [phone] Procedure(s): CT ABD+PEL W CON Date of service: 01/13/2025 10:47 AM Provided clinical information: 49 years, Female, left sided abdominalpain Procedure and materials: Helical imaging of the abdomen and pelvis areobtained from superior to the diaphragm to inferior to the initialtuberosities. Examination performed after intravenous contrast. 75 mLIsovue-370. A dose lowering technique was used for this procedure, which may include,but is not limited to, dose reduction technique, automated exposurecontrol, iterative reconstruction, ALARA (As Low As ReasonablyAchievable), or Image Gently techniques. Comparison studies: None. Findings: CT abdomen and pelvis: Lung Bases: No pleural effusions or consolidations. Adrenals:Normal. Spleen:No splenomegaly. Gallbladder and Biliary system:No CT evidence of cholelithiasis. Nobiliary ductal dilatation. Pancreas:Unremarkable. Liver:Unremarkable. Kidneys:Unremarkable. Bowel:No pericolonic inflammatory changes. Visualized appendix isunremarkable. No small bowel dilatation. There few scattered small bowelloops on the left that have slightly thickened morin. This may relate to abowel enteropathy or enteritis. Clinical correlation. Aorta and Retroperitoneum:No enlarged lymph nodes. Aorta is notaneurysmal. Pelvic Organs:Urinary bladder is unremarkable. Uterus is relativelyunremarkable. 2.7 cm right ovarian follicle/cyst. This can be seennormally in a patient of menstrual age. What appears to be left ovary is not enlarged. Bone/Musculoskeletal: No aggressive osseous lesions. Free fluid: None IMPRESSION: No acute inflammatory changes are present within the abdomen or pelvis. Nosignificant free fluid. There are a few small bowel loops on the left thathas slightly thickened wall which can be seen with bowel enteropathies aswell as enteritis. Clinical correlation recommended. 2.7 cm right ovarian follicle/cyst is present. This can be seen normallyin a patient of menstrual age. Ordered By: JERI LEIGH Interpreted By: Sy Maki MD, 01/13/2025 12:05 [address] us Jeri [address]AL CT Final Result * XR CHEST PA+LAT (01/13/2025 10:51 AM CDT) Anatomical Region Laterality Modality Chest Radiographic Susan ging 01/13/2025 10:5 1 AM CDT Impressions 01/13/2025 10:51 AM CDT IMPRESSION: Negative chest Ordered By: JERI LEIGH Interpreted By: Chidi Harvey MD, 01/13/2025 10:51 AM Narrative 01/13/2025 10:51 AM CDT [address] [place] [address] 2 VIEWS OF THE CHEST Clinical history: Left-sided pain Comparison: None 2 views of the chest demonstrate the cardiac silhouette to be normal in size and appearance. The pulmonary vessels are normally distributed. The Lungs are clear. No consolidations or effusions are seen. Procedure Note Chidi Harvey MD - 01/13/[address] [place] [address] 2 VIEWS OF THE CHEST Clinical history: Left-sided pain Comparison: None 2 views of the chest demonstrate the cardiac silhouette to be normal insize and appearance. The pulmonary vessels are normally distributed. TheLungs are clear. No consolidations or effusions are seen. IMPRESSION: Negative chest Ordered By: JERI LEIGH Interpreted By: Chidi Harvey MD, 01/13/2025 10:51 AM Jeri Leigh [facility] GENERAL IMAGING Final Result * COMPREHENSIVE METABOLIC PANEL (01/13/2025 10:31 AM CDT) GLUCOSE 95 70 - 99 MG/DL 01/13/2025 11:11 AM CDT [facility] BUN 16 7 - 18 MG/DL 01/13/2025 11:11 AM CDT [facility] CREATININE S/P/B 0.74 0.55 - 1.02 MG/DL 01/13/2025 11:11 AM CDT [facility] SODIUM S/P/B 141 136 - 145 MMOL/L 01/13/2025 11:11 AM [facility] POTASSIUM S/P/B 4.0 3.5 - 5.1 MMOL/L 01/13/2025 11:11 AM [facility] CHLORIDE S/P/B 103 100 - 108 MMOL/L 01/13/2025 11:11 AM [facility] CO2 31.5 21 - 32 MMOL/L 01/13/2025 11:11 AM [facility] CALCIUM S/P/B 9.4 8.5 - 10.1 MG/DL 01/13/2025 11:11 AM [facility] BILIRUBIN TOTAL S/P/B 0.4 0.2 - 1.2 MG/DL 01/13/2025 11:11 AM [facility] TOTAL PROTEIN S/P/B 7.7 6.4 - 8.2 G/DL 01/13/2025 11:11 AM [facility] ALBUMIN S/P/B 4.2 3.4 - 5.0 G/DL 01/13/2025 11:11 AM [facility] AST 19 15 - 37 U/L 01/13/2025 11:11 AM [facility] ALT 25 14 - 55 U/L 01/13/2025 11:11 AM [facility] ALKALINE PHOSPHATASE S/P/B 66 50 - 136 U/L 01/13/2025 11:11 AM [facility] ANION GAP 6.5 5 - 15 MMOL/L 01/13/2025 11:11 AM [facility] BUN CREATININE RATIO 21.6 6 - 26 01/13/2025 11:11 AM [facility] A/G RATIO 1.2 1.0 - 2.0 RATIO 01/13/2025 11:11 AM CDT [facility] GFR ESTIMATE >90 >90 ML/MIN/1.7 3 M2 01/13/2025 11:11 AM CDT [facility] Comment: NOTE: eGFR is not calculated for patients <18 years of age. This is an estimated GFR calculation using the new CKD EPI creatinine equation without race and so does not require a correction factor for race. This estimated GFR should not be used for calculating drug doses. 01/13/2025 10:3 1 AM CDT Jeri MARISCAL LABORATORY Final Result [facility] [address] [place] [phone], * (ABNORMAL) CBC W/DIFF AUTOMATED (01/13/2025 10:31 AM CDT) WBC 5.21 4.4 - 11.0 x10'3/uL 01/13/2025 10:52 AM CDT [facility] RBC 4.31(L) 4.50 - 5.10 x10'6/uL 01/13/2025 10:52 AM CDT [facility] HGB 14.2 12.3 - 15.3 G/DL 01/13/2025 10:52 AM CDT [facility] HCT 41.7 35.9 - 44.6 % 01/13/2025 10:52 AM CDT [facility] MCV 96.8(H) 80.0 - 96.0 FL 01/13/2025 10:52 AM CDT [facility] MCH 32.9(H) 25.3 - 30.9 PG 01/13/2025 10:52 AM CDT [facility] MCHC 34.1 31.0 - 34.1 G/DL 01/13/2025 10:52 AM CDT [facility] RDW 11.5(L) 12.4 - 15.1 % 01/13/2025 10:52 AM T [facility] PLT 192 151 - 353 x10'3/uL 01/13/2025 10:52 AM T [facility] MPV 10.8 9.6 - 12.0 FL 01/13/2025 10:52 AM T [facility] RBC MORPHOLOGY NORMAL 01/13/2025 10:52 AM T [facility] PLT MORPH. NORMAL 01/13/2025 10:52 AM T [facility] WBC MORPHOLOGY NORMAL 01/13/2025 10:52 AM T [facility] LYMPHOCYTES % 38.8 15.8 - 45.0 % 01/13/2025 10:52 AM [facility] NEUTROPHILS % 49.1 42.1 - 71.9 % 01/13/2025 10:52 AM T [facility] MONOCYTES % 10.0 5.7 - 12.5 % 01/13/2025 10:52 AM [facility] EOSINOPHILS 1.5 0.0 - 5.6 % 01/13/2025 10:52 AM [facility] BASOPHILS 0.4 0.0 - 1.3 % 01/13/2025 10:52 AM T [facility] ABS. NEUTROPHILS 2.56 1.40 - 6.00 x10'3/uL 01/13/2025 10:52 AM T [facility] IMMATURE GRANS % 0.2 0.0 - 0.5 % 01/13/2025 10:52 AM T [facility] ABS. LYMPHOCYTES 2.02 0.80 - 4.70 x10'3/uL 01/13/2025 10:52 AM CDT [facility] 01/13/2025 10:3 1 AM CDT us Jeri MARISCAL LABORAT[facility] Final Result Performing Organization Address City/[facility]/ZIP Co de Phone Number [facility] [address] [place] [address], [place] [phone] * LIPASE (01/13/2025 10:31 AM CDT) LIPASE 28 16 - 77 UNITS/L 01/13/2025 11:11 AM CDT [facility] 01/13/2025 10:3 1 AM CDT us Jeri MARISCAL LABORAT[facility] Final Result Performing Organization Address [facility] de Phone Number [facility] [address] [place] [address], [place] [phone] * URINALYSIS AUTO DIP (01/13/2025) COLOR (U) YELLOW YELLOW MG-[id number], [facility] CLEAR MG-[address], [place] GLUCOSE (U) NEGATIVE NEGATIVE MG/DL MG-[id number], [place] BILIRUBIN (U) NEGATIVE NEGATIVE MG-[address], [place] KETONES MG/DL (U) NEGATIVE NEGATIVE MG/DL MG-[address], [place] SPECIFIC GRAVITY (U) 1.010 1.001 - 1.035 MG-[address], [place] BLOOD (U) NEGATIVE NEGATIVE MG-[address], [place] U PH 7.0 5.0 - 9.0 MG-[address], [place] PROTEIN (U) NEGATIVE NEGATIVE mg/dL MG-[address], [place] UROBILINOGEN 0.2 0.2 - 1.0 EU/dL = mg/dL MG-[address], [place] NITRITES NEGATIVE NEGATIVE MG/DL MG-[address], [place] LEUKOCYTES (U) NEGATIVE NEGATIVE MG-[address], [place] URINE SPECIMEN OBTAINED BY CLEAN CATCH PROCEDURE / Unknown 01/13/2025 us Jeri MARISCAL URINE ORDERABLES Final Resul t -[id number], [place] [address] [place] [address], * MG SCREENING W TRENTON SYBIL DIGI (01/29/2024 3:00 PM CDT) Anatomical Region Laterality Modality Breast Bilateral Mammography 01/29/2024 5:13 PM CDT Impressions 01/29/2024 5:17 PM CDT ===== IMPRESSION: ===== 1. Stable mammographic appearance with no new findings to suggest malignancy in either breast. Assessment: ACR BI-RADS 2 - BENIGN FINDING(S) Recommendation: 1:Routine Screening Bilateral Comments: Ordered By: SHERI FAIR Interpreted By: Eilda Pederson, 01/29/2024 5:13 PM Narrative 01/29/2024 5:17 PM CDT EXAMINATION: Digital bilateral screening mammogram with 3-D tomosynthesis EXAM DATE/TIME: 01/29/2024 2:48 PM REASON FOR EXAM: Screening mammogram after November COMPARISON: 05/14/2022. 11/26/2022. Technique: Digital screening mammography [...] 7:05 AM CDT) COLOGUARD RESULT Negative Negative EXA YAZUO (CLIA #:[id number]) Comment: NEGATIVE TEST RESULT. A negative Cologuard result indicates a low likelihood that a colorectal cancer (CRC) or advanced adenoma (adenomatous polyps with more advanced pre-malignant features) is present. The chance that a person with a negative Cologuard test has a colorectal cancer is less than 1 in 1500 (negative predictive value >99.9%) or has an advanced adenoma is less than 5.3% (negative predictive value 94.7%). These data are based on a prospective cross-sectional study of 10,000 individuals at average risk for colorectal cancer who were screened with both Cologuard and colonoscopy. (Giselle Gamboa et al, N Engl J Med 2014;370(14):1955-4908) The normal value (reference range) for this assay is negative. COLOGUARD RE-SCREENING RECOMMENDATION: Periodic colorectal cancer screening is an important part of preventive healthcare for asymptomatic individuals at average risk for colorectal cancer. Following a negative Cologuard result, the [place] and U.S. Multi-Society Task Force screening guidelines recommend a Cologuard re-screening interval of 3 years. References: [place] Guideline for Colorectal Cancer Screening: https://www.cancer.org/cancer/ipwjc-krxhre-pqurwt/qdjpyclhe-vujlgxysg-rbilnjb/ac s-rec ommendations.html.; Frederic DK, Shaggy CR, Tam ClayK, Colorectal Cancer Screening: Recommendations for Physicians and Patients from the U.S. Multi-Society Task Force on Colorectal Cancer Screening , Am J Gastroenterology 2017; 112:6872-2449. TEST DESCRIPTION: Composite algorithmic analysis of stool DNA-biomarkers with hemoglobin immunoassay. Quantitative values of individual biomarkers are not [...] (Giselle Abernathy al, N Engl J Med 2014;370(14):0582-9439.) Cologuard may produce a false negative or false positive result (no colorectal cancer or precancerous polyp present at colonoscopy follow up). A negative Cologuard test result does not guarantee the absence of CRC or advanced adenoma (pre-cancer). The current Cologuard screening interval is every 3 years. ([place] [employer] and U.S. Multi-Society Task Force). Cologuard performance data in a 10,000 patient pivotal study using colonoscopy as the reference method can be accessed at the following location: www.[employer]results. Additional description of the Cologuard test process, warnings and precautions can be found at www.cologuard.com. STOOL STOOL SPECIMEN / Unknown 01/30/2023 7:05 AM CDT 01/31/2023 2:55 PM CDT Sheri Fair MD BODY FLUIDS AND STOOLS ORDERAB LES Final Result [employer] ([facility]) [address] [place] [address], [employer] (CLIA #:[id number]) [address] [place] [address] * HUMAN PAPILLOMAVIRUS, HIGH-RISK TYPES (01/16/2023 12:00 PM CDT) SPEC DESCRIPTION CERVICAL/END OCERVICAL 01/18/2023 8:36 AM CDT [facility] HPV DNA HIGH RISK NEGATIVE NEGATIVE 01/18/2023 4:34 PM CDT [facility] Comment:SEE CYTOLOGY REPORT 01/16/2023 12:0 0 PM CDT us Sheri Fair MD PATHOLOGY/CYTOLOGY ORDERABLES Final Result [facility] [address] [place] [id number], * CYTOPATH CERV/VAG THIN LAYER [[id number]] (01/16/2023 8:12 AM CDT) THIN PREP PAP [facility] [address] [place] [address] Department of Pathology Pathology Report CERVICAL/VAGINAL PAP SMEAR REPORT Name: JACKIE COLEMAN Age: 704/06/1975 (Age: 47) Location: [facility] Sex: F Collected Date: 01/16/2023 [facility] #: [id number] Date Received: 01/18/2023 Date Reported: 01/22/2023 Provider: SHERI FAIR MD INTERPRETATION CERVICAL/ENDOCERVI LUIS FERNANDO: SATISFACTORY FOR EVALUATION. ENDOCERVICAL/TRANS FORMATION ZONE COMPONENT PRESENT. NEGATIVE FOR INTRAEPITHELIAL LESION OR MALIGNANCY. NEGATIVE FOR HIGH RISK HPV. The FDA approved Aptima HPV assay is an in vitro nucleic acid amplification test for the qualitative detection of E6/E7 viral messenger RNA (mRNA) from 14 high-risk types of human papillomavirus (HPV) in cervical specimens. The high-risk HPV types detected by the assay include: 16,18,31,33,35,39, 45,51,52,56,58,59, 66, and 68. Electronically Signed Out By SONNY Miller (ASCP) CLINICAL HISTORY Z12.4 SCREENING PAP TEST ThinPrep Pap Test with HR HPV testing in patient > 30 years requested. Date of Last Menstrual Period: UNKNOWN Menstrual Status: Post-Menopausal SPECIMEN SUBMITTED CERVICAL/ENDOCERVI LUIS FERNANDO Specimen Received:1 Thin Prep Vial, Image Assisted Pap (SMD) Please note: The Pap smear is not a diagnostic test. It is a screening test. Negative results on combined screening (Pap test and HPV-DNA) have a high negative predictive value (99.1-100 percent) for cervical cancer. The pap test is not effective in detecting cervical adenocarcinoma. [facility] 01/16/2023 8:12 AM CDT 01/18/2023 8:12 AM CDT Comment:CERVICAL/ENDOCERVICA L Sheri Fair MD PATHOLOGY/CYTOLOGY ORDERABLES Final Result Performing Organization Address City/[facility]/ZIP Co de Phone Number [facility] [address] [place] [address], * HEPATITIS C AB ([facility] ONLY) (01/02/2023 7:35 AM CDT) HEPATITIS C AB NON-REACTI VE NON-REACTI VE 01/02/2023 8:25 PM CDT [facility] 01/02/2023 7:35 AM CDT us Sheri Fair MD LABORATORY Final Result [facility] [address] [place] [address], [place] [phone] from Last 3 Months or Most Recently Relevant to Health Maintenance Insurance [employer] Care Teams Fringe Weaver Relationship Specialty [place] [address] [facility] [address] [place] [id number] PCP - General FAMILY PRACTICE 08/07/22
--- OUTSIDE RECORDS SUMMARY | 2025-02-03 00:56 | XMS_ITS | Encounter Summary ---
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 [place] [address] PCP - General FAMILY PRACTICE 08/07/22 documented as of this encounter
--- OUTSIDE RECORDS SUMMARY | 2025-02-03 00:56 | XMS_ITS | Encounter Summary ---
Author Organization [facility] Address [address] [place] [address] Care Team Providers Care Dock Coordinator Name Role Phone Sheri Fair MD Primary Care Provider [phone] Encounter Details Date Type Department Care Team (Latest Contact Info) Description 01/13/2025 Results Follow-Up [facility] Family & Internal Medicine [facility] [id number] [place] [phone] [place] [id number] [place] [address] URINALYSIS AUTO DIP, CBC W/DIFF AUTOMATED, COMPREHENSIVE METABOLIC PANEL, Additional followed-up results: 3 Social History Tobacco Use Types Packs/Day Years Used Date Smoking Tobacco: Never Smokeless Tobacco: Never Alcohol Use Standard Drinks/Week Comments Yes 0 (1 standard drink = 0.6 oz pur e alcohol) socially PHQ-2 Answer Date Recorded Patient Health Questionnaire-2 Score 0 01/13/2025 Comments No Sex and Gender Information Value Date Recorded Sex Assigned at Not on file 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 Question Answer Date of Assessment Author Status Little interest or pleasure in doing things Not at all 01/13/2025 9:26 AM Jaz Alatorre MA Act sunday Feeling down, depressed, or hopeless Not at all 01/13/2025 9:26 AM DARIOT Jaz Turner MA Active Patient Health Questionnaire-2 Score 0 01/13/2025 9:26 AM CDT Jaz Turner MA Active documented as of this encounter Progress Notes * Jaz Turner MA - 01/14/2025 9:46 AM CDT Please advise documented in this encounter Plan of Treatment Not on file documented as of this encounter Visit Diagnoses Not on filedocumented in this encounter Care Teams Dock Coordinator Relationship Specialty [place] [address] [facility]. [address] [place] [address] PCP - General FAMILY PRACTICE 08/07/22 documented as of this encounter
--- OUTSIDE RECORDS SUMMARY | 2025-02-03 00:56 | XMS_ITS | Encounter Summary ---
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 [address] [place] [address] PCP - General FAMILY PRACTICE 08/07/22 documented as of this encounter
--- OUTSIDE RECORDS SUMMARY | 2025-02-03 00:56 | XMS_ITS | Encounter Summary ---
Author Organization [facility] Address [address] [place] [address] Care Team Providers Care Narcotics Detective Name Role Phone Sheri Fair MD Primary Care Provider [phone] Reason for Visit * Reason Onset Date Comments Question 09/29/2024 Encounter Details Date Type Department Care Team (Late st Contact Info) Description 09/29/2024 [employer] Message Enc [facility] Medical Group Family & Internal Medicine [address] [phone] [place] Fair [place] [id number] [place] [address]. 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 AP PLACING SUPERVISOR * Vipin Gil - 10/06/2024 9:16 AM CST Pt calling needing to have a TB test done okay for order to be put in? Would like a call back Please advise. AP PLACING SUPERVISOR documented in this encounter Plan of Treatment Not on file documented as of this encounter Visit Diagnoses Not on filedocumented in this encounter Care Teams Narcotics Detective Relationship Specialty [place] [address] [address] [place] [address] PCP - General FAMILY PRACTICE 08/07/22 documented as of this encounter
--- OUTSIDE RECORDS SUMMARY | 2025-02-03 00:56 | XMS_ITS | Encounter Summary ---
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 No order was placed. Patient scheduled 01/20/24 documented in this encounter Plan of Treatment Not on file documented as of this encounter Visit Diagnoses Not on filedocumented in this encounter Care Teams Change Room Attendant Relationship Specialty [place] [address] [address] [place] [id number] PCP - General FAMILY PRACTICE 08/07/22 documented as of this encounter
[2025-02-03] MEDS: ACETAMINOPHEN 500 MG TABLET 1000 MG PO (09:33)
[2025-02-03] MEDS: LACTATED RINGERS 1,000 ML 30 ML IV CONT (09:40)
[2025-02-03 10:10] LABS: BEDSIDEPREGUCG Negative (Negative)
--- NOTE | 2025-02-03 10:54 | WPDANESEPPF ---
Anes - Initial Pre Proc Eval Procedure: Operation Date: 02/03/25 11:00 Proposed Procedures p Hysteroscopy Dilation and Curettage with Removal of Any Endometrial Lesions if Necessary, Insertion of Intrauterine Device - Cedrick Mayfield MD Date/Time: 02/03/25 10:54 Surgeon: Cedrick Mayfield MD Pre Op Diagnosis: post menopau bleeding, Thickened endome strip Patient Data Age: 49 Gender: F Height: 1.73 m Weight: 67 kg Last Vital Signs Temp 36.1 C L 02/03/25 09:10 Pulse 55 L 02/03/25 09:10 Resp 16 02/03/25 09:10 BP 125/76 02/03/25 09:10 Pulse Ox 100 02/03/25 09:10 O2 Del Method Room Air 02/03/25 09:10 Allergies Allergy/AdvReac Type Severity Reaction Status Date / Time No Known Drug Allergies Allergy Unknown NA Verified 02/03/25 09:16 Home Medications ?Medication ?Instructions ?Recorded ?Confirmed ?Type multivitamin (Daily Multi-Vitamin 1 tablet PO DAILY 05/07/24 02/03/25 History tablet) Laboratory Tests 02/03/25 09:20 POC Urine HCG, Qual Negative (Negative) Patient hx anesthesia problems: none Family hx anesthesia problems: none Results Review: All pre-operative results and documents have been reviewed as part of the pre-operative evaluation. [facility] Surgical History Surgical History H/O: Social History Social History Smoking status: Never smoker Second hand tobacco smoke exposure: No Alcohol intake: current Substance use: never Substance use type: does not use Anes - Eval Final PreProcedure Day of Procedure 02/03/25 10:54 Patient weight: normal Heart: regular rate and rhythm Lungs: clear to auscultation and normal air movement Airway: Mallampati scale class II Neurological: alert and oriented Last oral intake: >/= 8 hours ASA classification: I Emergent: no Anesthetic plan: proceed Anesthesia type and monitoring: general GIVS and standard monitoring Results Review: All pre-operative results and documents have been reviewed as part of the pre-operative evaluation. Informed Consent: The patient's anesthetic plan and its attendant risks and benefits were discussed with the patient/family/POA. Questions were solicited and answers provided to the satisfaction of the patient/family/POA.
--- NOTE | 2025-02-03 10:55 | WPDHPUPDATE1 ---
History and Physical Update Update Date/Time: 02/03/25 10:55 History and Physical has been reviewed, including an updated exam of the patient. There are NO changes in the patient's condition. Risks, benefits, and alternatives have been discussed and questions answered. Patient agrees to proceed with procedure.
--- NOTE | 2025-02-03 11:08 | WPDHPUPDATE1 ---
History and Physical Update Update Date/Time: 02/03/25 11:08 History and Physical has been reviewed, including an updated exam of the patient. There are NO changes in the patient's condition. Risks, benefits, and alternatives have been discussed and questions answered. Patient agrees to proceed with procedure. Will perform D and C hysteroscopy and removal of lesion if present and insertion of Mirena IUD.
[2025-02-03] MEDS: ceFAZolin 2 GM/D5W 50 ML 2 GM/50 ML BAG IVPB (11:09)
--- NOTE | 2025-02-03 11:25 | S_PTH ---
PATIENT: Jackie Anaya LOC: [facility]#:[id number] AGE/SX: 49/F ROOM: RE02/03/[address]: Cedrick Mayfield MD : 1975 BED: DIS: 02/03/2025 SPEC #: [id number] RECD: 02/03/25 13:52 STATUS: ZAKIA REQ #: [id number] AILYN: 02/03/25 11:[address]: Cedrick Mayfield DEPT: [facility] Surgical RECD BY: Lilliam Tolliver ENTERED: 02/03/25 14:03 SP TYPE: Surgical OTHR DR: Sheri FairMD Tissues: A - Endometrial Curettings Procedures: Hematoxylin and Eosin Stain Gross and Microscopic Level 4
[2025-02-03] MEDS: LIDOCAINE 1% LOCAL INJ 10 ML VIAL INFILTRATE (11:29)
--- NOTE | 2025-02-03 12:25 | SUR.PHASEII ---
Pt stood to get dressed and reported that she felt really dizzy. Vaginal bleeding small amt on peripad. Abd soft nontender. BP 69/30. HR 50. HE Patient laying in supine position, encouraging fluids, cool rag to forehead.
[2025-02-03] MEDS: oxyCODONE HCL (*CRX) 5 MG TAB IR PO (12:38)
--- NOTE | 2025-02-03 12:39 | SUR.PHASEII ---
MD Junior notified of pt BP - improving. Currently at 80/45 HR 43. Pt stating she is starting to feel better. Pt still lying supine, encouraging PO fluids.
--- NOTE | 2025-02-03 13:57 | SUR.PHASEII ---
MD Junior at bedside - pt BP 80s/40s and asymptomatic. HR in the 40s. Pt ok to discharge with systolic in the 90s and asymptomatic per MD. Encouraging PO fluid intake. Small amt of vaginal bleeding - abd soft and non tender. Pain is mild per pt.
--- NOTE | 2025-02-03 14:35 | SUR.PHASEII ---
Pt BP 107/50. Pt states she feels good and is ready to discharge home. MD Junior notified. Pt ok to discharge home.
--- NOTE | 2025-02-04 07:43 | W.PM.PROC2 ---
Procedure Note - Detailed Date of Procedure 02/26/25 Pre-op Diagnosis post menopau bleeding, Thickened endome strip, IUD insertion Post-op Diagnosis Same Procedure Performed Hysteroscopy and dilation and curettage and insertion of Mirena IUD Surgeon Cedrick Mayfield MD Anesthesia MAC and Local Indications Postmenopausal bleeding and request IUD insertion Findings Mostly atrophic uterine cavity Description of Procedure After informed consent was obtained patient was taken to the operating room and adequate IV sedation was administered. Attention was turned to the vagina. Speculum was inserted. Single-tooth tenaculum placed on the anterior lip of the cervix.10cc of 1% lidocaine injected at cervicovaginal interface at 2,5,8,10 position. The uterus was sounded to 7.5 cm. The cervix was dilated to an 6 Saul dilator. The hysteroscope was inserted into the cavity. The findings were a normal mostly atrophic appearing uterine cavity. The hysteroscope was removed. A currettage was performed. The Mirena IUD was inserted. IUD string cut. The single-tooth tenaculum was removed hemostasis was noted at the tenaculum site. Sponge count correct. The patient taken to recovery in stable condition. Estimated Blood Loss 5 Drains No Packing No Pathology Yes (Endometrial curettings) Complications No immediate complications Condition Stable Disposition Observation [facility] Billing Surgery - Charge Forward: Surgery Billing
== END 2025-02-03 14:40 | disposition home or self-care (01) ==
PROVIDERS: PCP Family Medicine; Visit Provider Obstetrics & Gynecology
PROC: 0U5B8ZZ Destruction of Endometrium, Via Natural or Artificial Opening Endoscopic (ICD-10-PCS; CPT 58563; principal; 2025-02-03 11:00)
DX: N95.0 Postmenopausal bleeding (principal); Z30.430 Encounter for insertion of intrauterine contraceptive device
CPT/HCPCS: 58558; 58300; 88305; A9270; J0690; J2003; J2250; J2704; J7120